=== PATIENT | female | born 2000 | race Caucasian/White ===

== ENCOUNTER 2022-05-16 11:45 | Emergency (ER) | payer BC, SELFPAY ==
[2022-05-16 11:47] VITALS: BP 148/97; PULSE 82; RESP 16; TEMP 36.7; O2SAT 100; BMI 19.2
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
[2022-05-16 13:07] VITALS: BP 164/94; PULSE 83; RESP 16; O2SAT 98
== END 2022-05-16 13:08 | disposition home or self-care (01) ==
PROVIDERS: Emergency Provider Emergency Medicine; Visit Provider Emergency Medicine
DX: S09.90XA Unspecified injury of head, initial encounter (principal); Z79.899 Other long term (current) drug therapy; V49.3XXA Car occupant (driver) (passenger) injured in unspecified nontraffic accident, initial encounter
CPT/HCPCS: 70450; 99284

== ENCOUNTER 2022-05-29 23:25 | Emergency (ER) | payer BC, SELFPAY ==
[2022-05-29 23:26] VITALS: BP 143/99; PULSE 80; RESP 15; TEMP 37.2; O2SAT 97; BMI 18.8
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
[2022-05-30] MEDS: 0.9% Normal Saline 1,000 ML 999 ML IV
[2022-05-30 00:04] LABS: Absolute Lymphocyte Count 1.64 X10^3/uL (0.83-4.51); Absolute Neutrophil Count 11.1 X10^3/uL (2.0-7.7); Basophil# 0.03 X10^3/uL; Basophil% 0.2 % (0-1); Eosinophil# 0.01 X10^3/uL; Eosinophils% 0.1 % (0-5); Hematocrit 42.7 % (37-47); Hemoglobin 14.3 g/dL (12.0-15.0); Lymphocyte # 1.64 X10^3/ul (0.83-4.51); Lymphocyte % 12.4 % (19-41); Mean Corp Hgb Conc 33.5 g/dL (32-36); Mean Corpuscular Hgb 29.1 pg (27.0-32.0); Mean Platelet Vol. 9.6 fl (6.2-12.0); Monocyte# 0.32 X10^3/uL; Monocyte% 2.4 % (0-10); NRBC Flagged by Analyzer 0 % (0-5); Neutrophil # 11.12 X10^3/uL (2.7-7.7); Neutrophil % 84.2 % (47-70); Platelet Count 320 K/mm3 (150-450); RBC Distribution Width CV 12.3 % (11.6-14.6); RBC Distribution Width SD 39.4 fl (35.1-43.9); Red Blood Count 4.91 M/mm3 (4.2-5.4); White Blood Count 13.2 K/mm3 (4.4-11.0)
[2022-05-30] MEDS: Ondansetron 4 MG/2 ML Vial IV ×2 (00:10→02:43)
[2022-05-30 00:19] LABS: Internal QC Validated? YES +Cl - CLEAR BKGD; Pregnancy, Serum, hCG Quali. NEGATIVE Negative
[2022-05-30 00:21] LABS: Anion Gap 12 (5-15); BUN 12 mg/dL (7-18); Calcium,Total 9.4 mg/dL (8.5-10.1); Chloride 107 mmol/L (98-107); EST Glomerular Filtration Rate 96 mL/min (>60); Est Glom Filt Rate - Afr Amer 116 mL/min (>60); Estimated Creatinine Clearance 87.62 ml/min; Glucose 206 mg/dL (74-106); Potassium 3.3 mmol/L (3.5-5.1); Sodium Level 140 mmol/L (136-145)
[2022-05-30] MEDS: Metoclopramide 10 MG/2 ML Vial 5 MG IV ×2 (01:10→01:55)
[2022-05-30] MEDS: Potassium Chloride 10mEq/100mL 10 MEQ/100 ML IV.SOLN. 100 MEQ IV BOLUS (01:11)
[2022-05-30 01:47] VITALS: BP 122/85; PULSE 74; RESP 16; O2SAT 100
[2022-05-30 01:51] VITALS: TEMP 36.3
[2022-05-30] MEDS: 0.9% Normal Saline 1,000 ML 150 ML IV (02:46)
[2022-05-30 02:55] LABS: AST(SGOT) 74 U/L (15-37); Alanine Aminotransfer ALT/SGPT 86 U/L (13-56); Albumin, Serum 4.1 g/dL (3.2-5.0); Alkaline Phosphatase 59 U/L (45-117); Bilirubin, Direct 0.22 mg/dL (0.00-0.30); Lipase 177 U/L (73-393); Protein, Total 7.1 g/dL (6.4-8.2)
[2022-05-30 04:41] VITALS: BP 125/74; PULSE 78; RESP 16; O2SAT 99
== END 2022-05-30 04:42 | disposition home or self-care (01) ==
PROVIDERS: Emergency Provider Emergency Medicine; Visit Provider Emergency Medicine
DX: K52.9 Noninfective gastroenteritis and colitis, unspecified (principal); E87.6 Hypokalemia; F41.9 Anxiety disorder, unspecified; Z79.899 Other long term (current) drug therapy
CPT/HCPCS: 80048; 80076; 83690; 84703; 85025; 96361; 96374; 96375; 99282; J7030; J7040; A4216; J2405